=== PATIENT | female | born 1960 | race Caucasian/White ===

== ENCOUNTER 2018-09-14 06:49 | Emergency (ER) | payer BC, SELFPAY ==
[2018-09-14 07:02] VITALS: BP 136/64; PULSE 64; RESP 18; TEMP 36.6; O2SAT 96; BMI 31.4
--- NOTE | 2018-09-14 07:17 | ED.ARRPALP ---
HPI - Arrhythmia/Palpitations General Chief Complaint: Arrhythmia/Palpitations Stated Complaint: flu/afib Time Seen by Provider: 09/14/18 06:58 Source: patient Mode of arrival: ambulatory Limitations: no limitations History of Present Illness HPI narrative: Patient is a 58-year-old presenting with heart palpitations. She has a history of atrial fibrillation and has a pacemaker placed. She said that she has been feeling ill for about the last week with fever body aches and chills. She thinks that she has had influenza. Yesterday she felt that she was in AFib from 10:00 a.m. to 7:00 p.m.. She felt herself convert she then says it went back into this morning at 4:00 a.m. it was not getting any better so she she came to the ER for further evaluation. She now is back to her paced rhythm on the monitor and EKG. She was given albuterol for her cough and chest congestion. She was also given Robitussin. She feels like maybe both of those are causing her AFib. MD complaint: rapid heart beat Arrhythmia history: atrial fibrillation Related Data Home Medications Medication Instructions Recorded Confirmed aspirin 81 mg PO DAILY 09/14/18 09/14/18 lorazepam 0.5 mg PO DAILY PRN 09/14/18 09/14/18 metoprolol tartrate 100 mg PO BID 09/14/18 09/14/18 Allergies Allergy/AdvReac Type Severity Reaction Status Date / Time Penicillins [PENICILLINS] Allergy Unknown Verified 09/14/18 07:15 Review of Systems Review of Systems ROS Unobtainable: All systems reviewed & are unremarkable except as noted in HPI and below Constitutional Reports body ache(s), Reports chills and Reports fever(s) Cardiovascular Reports chest pain and Reports irregular heart rhythm Respiratory Reports chest congestion and Reports cough Gastrointestinal Gastrointestinal: Denies abdominal pain, Denies change in bowel habits, Denies diarrhea, Denies nausea and Denies vomiting Genitourinary Denies hematuria, Denies flank pain, Denies urinary incontinence and Denies urinary urgency Musculoskeletal Denies back pain, Denies muscle weakness, Denies numbness and Denies tingling Integumentary/Breasts Denies pruritus, Denies erythema, Denies rash and Denies wounds Neurologic Denies numbness and Denies tingling [facility] Medical History Atrial fibrillation (Acute) Cleft palate (Acute) Surgical History Status post biventricular pacemaker (Acute) Social History (Updated 09/14/18 @ 07:30 by Aylin Foreman DO) Smoking Status: Former smoker alcohol intake: never substance use type: does not use Social History Smoking Status: Former smoker alcohol intake: never substance use type: does not use Exam Initial Vital Signs Initial Vital Signs: Vital Signs Temperature 97.9 F 09/14/18 07:02 Pulse Rate 64 09/14/18 07:02 Respiratory Rate 18 09/14/18 07:02 Blood Pressure 136/64 09/14/18 07:02 Pulse Oximetry 96 09/14/18 07:02 GENERAL: Well-appearing, well-nourished and in no acute distress. HEENT: Head atraumatic,EOMI, pupils reactive, face symmetric, moist mucous membranes CARDIOVASCULAR: Regular rate and rhythm without murmurs, rubs or gallops. RESPIRATORY: Breath sounds equal bilaterally, no wheezes rales or rhonchi. ABDOMEN: Soft, nontender. Normoactive bowel sounds all 4 quadrants. No guarding or rebound. EXTREMITIES: Normal range of motion, no clubbing or edema. Neurovascularly intact NEUROLOGICAL: Alert and oriented x4.Normal gait and speech. SKIN: Warm, dry, no laceration, no petechiae, no rashes or lesions. Course Orders Ordered: ED Orders 09/14/18 07:02 EKG-12 Lead Stat 09/14/18 07:31 XR chest 1V Stat 09/14/18 07:55 Complete Blood Count AUTO DIFF Stat Comprehensive Metabolic Panel Stat Influenza A and B by PCR Rapid Stat Lipase Stat Troponin & CK Cardiac Panel Stat Discontinued Medications Sodium Chloride (Normal Saline 0.9%) 1,000 mls @ 1,000 mls/hr IV CONT DEXTER Last Infusion: 09/14/18 09:04 Dose: 0 mls/hr Admin: 09/14/18 08:00 Dose: 1,000 mls/hr Vital Signs - 8 hr 09/14/18 07:02 09/14/18 07:30 09/14/18 08:00 Temperature 97.9 F Pulse Rate 64 62 62 Respiratory Rate 18 17 17 Blood Pressure 136/64 Blood Pressure [Right Arm] 128/63 109/56 L Pulse Oximetry 96 98 95 MDM - Arrhythmia/Palpitations Lab Data Attestation: I reviewed the patient's lab results. Result diagrams: 09/14/18 07:55 09/14/18 07:55 Lab Results 09/14/18 09/14/18 09/14/18 Range/Units 07:55 07:55 07:55 WBC 4.2 L (4.5-11.0) X10^3/uL RBC 4.78 (4.0-5.2) X10^6/uL Hgb 14.5 (12.0-16.0) g/dL Hct 42.4 (36-46) % MCV 88.8 (80-100) fL MCH 30.4 (26-34) PG MCHC 34.3 (30-36) % RDW 13.4 (11.6-14.8) % Plt Count 189 (150-400) X10^3/uL Neut % (Auto) 61.1 (50-75) % Lymph % (Auto) 28.2 (25-40) % [place] % (Auto) 9.8 (3-14) % Eos % (Auto) 0.2 L (2-4) % Baso % (Auto) 0.7 (0-2) % Neut # (Auto) 2600 (5103-7722) /uL Lymph # (Auto) 1200 (6652-1281) /uL [place] # (Auto) 400 (0-900) /uL Eos # (Auto) 0 (0-450) /uL Baso # (Auto) 0 (0-100) /uL Sodium 138 (137-145) mmol/L Potassium 4.5 (3.4-5.1) mmol/L Chloride 103 (98-107) mmol/L Carbon Dioxide 23 (22-32) mmol/L BUN 19 H (7-17) mg/dL Creatinine 0.70 (0.52-1.04) mg/dL Estimated GFR > 60.0 (>60) mL/min BUN/Creatinine Ratio 27.1 H (6-22) Glucose 117 H (70-100) mg/dL Calcium 8.5 (8.4-10.2) mg/dL Total Bilirubin 0.7 (0.2-1.3) mg/dL AST 49 H (14-36) IU/L ALT 31 (9-52) IU/L Alkaline Phosphatase 66 (38-126) U/L Total Creatine Kinase 563 H (30-135) U/L CK-MB (CK-2) 7.13 H (<2.37) ng/mL CK-MB (CK-2) Rel Index 1.3 L (1.5-5.0) % Troponin I < 0.012 (0.01-0.034) ng/mL Total Protein 8.0 (6.3-8.2) g/dL Albumin 4.4 (3.5-5.0) g/dL Globulin 3.6 (1.7-4.1) g/dL Albumin/Globulin Ratio 1.2 (1.0-2.8) Lipase 94 (23-300) U/L Influenza A & B (PCR) Positive, type a A (Negative) Imaging Data Chest x-ray: Radiologist's impression: PROCEDURE: XR CHEST 1V INDICATIONS: cough chest pain TECHNIQUE: One view of the chest was acquired. COMPARISON: [facility], CHEST 1 VIEW, 10/09/2012, 6:23. FINDINGS: Surgical changes and devices: Left chest wall cardiac device leads are seen in the region of right atrium and right ventricle. Lungs and pleura: Mild pulmonary vascular congestion is seen. No focal infiltrate. No pleural effusions or pneumothorax. Mediastinum: Mediastinal contours appear normal. Heart size is normal. Bones and chest wall: No suspicious bony lesions. Overlying soft tissues appear unremarkable. IMPRESSION: Mild congestion. No focal infiltrate. Dictated by: Blaine Hinds M.D. on 09/14/2018 at 8:20 ECG Data Attestation: I personally reviewed and interpreted this ECG as follows: Prior ECG tracings: available for review Interpretation: Sinus rhythm rate 61 T-wave inversions noted in V2 V3 and V4 similar to previous id also noted in lead 3. Has no ST elevations. [facility] Narrative Medical decision making narrative: The patient does not have pneumonia she does have influenza. This is likely causing her bouts of atrial fibrillation. Overall feeling better. Patient is not in atrial fibrillation she is a paced rhythm Discharge Plan Departure Patient Disposition: Home Clinical Impression: Influenza Discharge Date/Time: 09/14/18 09:26 Interventions: ED Discharge Assessment Last Done: 09/14/18 09:26 Instructions: DI for Influenza -- Adult Activity Restrictions/Additional Instructions: *You have been diagnosed with influenza *What to do: Increase fluid intake. Bouts of AFib are likely due to the influenza. *Continue to take medications as directed Tylenol 650 mg every 4-6 hours if needed fever *Follow up with your primary care provider in 2-3 days *Return to ER if you should have inability to tolerate fluids, increased heart palpitations, difficulty breathing or any new, worsening or concerning symptoms Prescriptions: No Action metoprolol tartrate 100 mg tablet 100 mg PO BID RF: 0 lorazepam 0.5 mg Tablet 0.5 mg PO DAILY PRN (Reason: Anxiety) RF: 0 aspirin 81 mg Tablet,Chewable 81 mg PO DAILY RF: 0
--- NOTE | 2018-09-14 07:25 | ED_ITS ---
HPI - Arrhythmia/Palpitations General Chief Complaint: Arrhythmia/Palpitations Stated Complaint: flu/afib Time Seen by Provider: 09/14/18 06:58 Source: patient Mode of arrival: ambulatory Limitations: no limitations History of Present Illness HPI narrative: Patient is a 58-year-old presenting with heart palpitations. She has a history of atrial fibrillation and has a pacemaker placed. She said that she has been feeling ill for about the last week with fever body aches and chills. She thinks that she has had influenza. Yesterday she felt that she was in AFib from 10:00 a.m. to 7:00 p.m.. She felt herself convert she then says it went back into this morning at 4:00 a.m. it was not getting any better so she she came to the ER for further evaluation. She now is back to her paced rhythm on the monitor and EKG. She was given albuterol for her cough and chest congestion. She was also given Robitussin. She feels like maybe both of those are causing her AFib. MD complaint: rapid heart beat Arrhythmia history: atrial fibrillation Related Data Home Medications Medication Instructions Recorded Confirmed aspirin 81 mg PO DAILY 09/14/18 09/14/18 lorazepam 0.5 mg PO DAILY PRN 09/14/18 09/14/18 metoprolol tartrate 100 mg PO BID 09/14/18 09/14/18 Allergies Allergy/AdvReac Type Severity Reaction Status Date / Time Penicillins [PENICILLINS] Allergy Unknown Verified 09/14/18 07:15 Review of Systems Review of Systems ROS Unobtainable: All systems reviewed & are unremarkable except as noted in HPI and below Constitutional Reports body ache(s), Reports chills and Reports fever(s) Cardiovascular Reports chest pain and Reports irregular heart rhythm Respiratory Reports chest congestion and Reports cough Gastrointestinal Gastrointestinal: Denies abdominal pain, Denies change in bowel habits, Denies diarrhea, Denies nausea and Denies vomiting Genitourinary Denies hematuria, Denies flank pain, Denies urinary incontinence and Denies urinary urgency Musculoskeletal Denies back pain, Denies muscle weakness, Denies numbness and Denies tingling Integumentary/Breasts Denies pruritus, Denies erythema, Denies rash and Denies wounds Neurologic Denies numbness and Denies tingling [facility] Medical History Atrial fibrillation (Acute) Cleft palate (Acute) Surgical History Status post biventricular pacemaker (Acute) Social History (Updated 09/14/18 @ 07:30 by Aylin Foreman DO) Smoking Status: Former smoker alcohol intake: never substance use type: does not use Social History Smoking Status: Former smoker alcohol intake: never substance use type: does not use Exam Initial Vital Signs Initial Vital Signs: Vital Signs Temperature 97.9 F 09/14/18 07:02 Pulse Rate 64 09/14/18 07:02 Respiratory Rate 18 09/14/18 07:02 Blood Pressure 136/64 09/14/18 07:02 Pulse Oximetry 96 09/14/18 07:02 GENERAL: Well-appearing, well-nourished and in no acute distress. HEENT: Head atraumatic,EOMI, pupils reactive, face symmetric, moist mucous mem branes CARDIOVASCULAR: Regular rate and rhythm without murmurs, rubs or gallops. RESPIRATORY: Breath sounds equal bilaterally, no wheezes rales or rhonchi. ABDOMEN: Soft, nontender. Normoactive bowel sounds all 4 quadrants. No guarding or rebound. EXTREMITIES: Normal range of motion, no clubbing or edema. Neurovascularly intact NEUROLOGICAL: Alert and oriented x4.Normal gait and speech. SKIN: Warm, dry, no laceration, no petechiae, no rashes or lesions. Course Orders Ordered: ED Orders 09/14/18 07:02 EKG-12 Lead Stat 09/14/18 07:31 XR chest 1V Stat 09/14/18 07:55 Complete Blood Count AUTO DIFF Stat Comprehensive Metabolic Panel Stat Influenza A and B by PCR Rapid Stat Lipase Stat Troponin & CK Cardiac Panel Stat Discontinued Medications Sodium Chloride (Normal Saline 0.9%) 1,000 mls @ 1,000 mls/hr IV CONT DEXTER Last Infusion: 09/14/18 09:04 Dose: 0 mls/hr Admin: 09/14/18 08:00 Dose: 1,000 mls/hr Vital Signs - 8 hr 09/14/18 07:02 09/14/18 07:30 09/14/18 08:00 Temperature 97.9 F Pulse Rate 64 62 62 Respiratory Rate 18 17 17 Blood Pressure 136/64 Blood Pressure [Right Arm] 128/63 109/56 L Pulse Oximetry 96 98 95 MDM - Arrhythmia/Palpitations Lab Data Attestation: I reviewed the patient's lab results. Result diagrams: 09/14/18 07:55 09/14/18 07:55 Lab Results 09/14/18 09/14/18 09/14/18 Range/Units 07:55 07:55 07:55 WBC 4.2 L (4.5-11.0) X10^3/uL RBC 4.78 (4.0-5.2) X10^6/uL Hgb 14.5 (12.0-16.0) g/dL Hct 42.4 (36-46) % MCV 88.8 (80-100) fL MCH 30.4 (26-34) PG MCHC 34.3 (30-36) % RDW 13.4 (11.6-14.8) % Plt Count 189 (150-400) X10^3/uL Neut % (Auto) 61.1 (50-75) % Lymph % (Auto) 28.2 (25-40) % [place] % (Auto) 9.8 (3-14) % Eos % (Auto) 0.2 L (2-4) % Baso % (Auto) 0.7 (0-2) % Neut # (Auto) 2600 (8765-5605) /uL Lymph # (Auto) 1200 (2680-4681) /uL [place] # (Auto) 400 (0-900) /uL Eos # (Auto) 0 (0-450) /uL Baso # (Auto) 0 (0-100) /uL Sodium 138 (137-145) mmol/L Potassium 4.5 (3.4-5.1) mmol/L Chloride 103 (98-107) mmol/L Carbon Dioxide 23 (22-32) mmol/L BUN 19 H (7-17) mg/dL Creatinine 0.70 (0.52-1.04) mg/dL Estimated GFR > 60.0 (>60) mL/min BUN/Creatinine Ratio 27.1 H (6-22) Glucose 117 H (70-100) mg/dL Calcium 8.5 (8.4-10.2) mg/dL Total Bilirubin 0.7 (0.2-1.3) mg/dL AST 49 H (14-36) IU/L ALT 31 (9-52) IU/L Alkaline Phosphatase 66 (38-126) U/L Total Creatine Kinase 563 H (30-135) U/L CK-MB (CK-2) 7.13 H (<2.37) ng/mL CK-MB (CK-2) Rel Index 1.3 L (1.5-5.0) % Troponin I < 0.012 (0.01-0.034) ng/mL Total Protein 8.0 (6.3-8.2) g/dL Albumin 4.4 (3.5-5.0) g/dL Globulin 3.6 (1.7-4.1) g/dL Albumin/Globulin Ratio 1.2 (1.0-2.8) Lipase 94 (23-300) U/L Influenza A & B (PCR) Positive, type a A (Negative) Imaging Data Chest x-ray: Radiologist's impression: PROCEDURE: XR CHEST 1V INDICATIONS: cough chest pain TECHNIQUE: One view of the chest was acquired. COMPARISON: [facility], , CHEST 1 VIEW, 10/09/2012, 6:23. FINDINGS: Surgical changes and devices: Left chest wall cardiac device leads are seen in the region of right atrium and right ventricle. Lungs and pleura: Mild pulmonary vascular congestion is seen. No focal infi ltrate. No pleural effusions or pneumothorax. Mediastinum: Mediastinal contours appear normal. Heart size is normal. Bones and chest wall: No suspicious bony lesions. Overlying soft tissues appear unremarkable. IMPRESSION: Mild congestion. No focal infiltrate. Dictated by: Blaine Hinds M.D. on 09/14/2018 at 8:20 ECG Data Attestation: I personally reviewed and interpreted this ECG as follows: Prior ECG tracings: available for review Interpretation: Sinus rhythm rate 61 T-wave inversions noted in V2 V3 and V4 similar to previous id also noted in lead 3. Has no ST elevations. MDM Narrative Medical decision making narrative: The patient does not have pneumonia she does have influenza. This is likely causing her bouts of atrial fibrillation. Overall feeling better. Patient is not in atrial fibrillation she is a paced rhythm Discharge Plan Departure Patient Disposition: Home Clinical Impression: Influenza Discharge Date/Time: 09/14/18 09:26 Interventions: ED Discharge Assessment Last Done: 09/14/18 09:26 Instructions: DI for Influenza -- Adult Activity Restrictions/Additional Instructions: *You have been diagnosed with influenza *What to do: Increase fluid intake. Bouts of AFib are likely due to the influenza. *Continue to take medications as directed Tylenol 650 mg every 4-6 hours if needed fever *Follow up with your primary care provider in 2-3 days *Return to ER if you should have inability to tolerate fluids, increased heart palpitations, difficulty breathing or any new, worsening or concerning symptoms Prescriptions: No Action metoprolol tartrate 100 mg tablet 100 mg PO BID RF: 0 lorazepam 0.5 mg Tablet 0.5 mg PO DAILY PRN (Reason: Anxiety) RF: 0 aspirin 81 mg Tablet,Chewable 81 mg PO DAILY RF: 0
[2018-09-14 07:30] VITALS: BP 128/63; PULSE 62; RESP 17; O2SAT 98
--- NOTE | 2018-09-14 07:31 | DI.RAD.S_ITS ---
PROCEDURE: XR CHEST 1V INDICATIONS: cough chest pain TECHNIQUE: One view of the chest was acquired. COMPARISON: , , CHEST 1 VIEW, 10/09/2012, 6:23. FINDINGS: Surgical changes and devices: Left chest wall cardiac device leads are seen in the region of right atrium and right ventricle. Lungs and pleura: Mild pulmonary vascular congestion is seen. No focal infiltrate. No pleural effusions or pneumothorax. Mediastinum: Mediastinal contours appear normal. Heart size is normal. Bones and chest wall: No suspicious bony lesions. Overlying soft tissues appear unremarkable. IMPRESSION: Mild congestion. No focal infiltrate. Dictated by: Blaine Hinds M.D. on 09/14/2018 at 8:20 Approved by: Blaine Hinds M.D. on 09/14/2018 at 8:22
[2018-09-14 08:00] VITALS: BP 109/56; PULSE 62; RESP 17; O2SAT 95
[2018-09-14] MEDS: SODIUM CHLORIDE 0.9% 1,000 ML 1000 ML IV (08:00)
[2018-09-14 08:05] LABS: Add Manual Diff / Slide Review NO; Basophils Absolute Auto 0 /uL (0-100); Basophils Percent Auto 0.7 % (0-2); Eosinophils Absolute Auto 0 /uL (0-450); Eosinophils Percent Auto 0.2 % (2-4); Hematocrit 42.4 % (36-46); Hemoglobin 14.5 g/dL (12.0-16.0); Lymphocytes Absolute Auto 1200 /uL (1100-4500); Lymphocytes Percent Auto 28.2 % (25-40); Mean Corpuscular HGB Conc 34.3 % (30-36); Mean Corpuscular Hemoglobin 30.4 PG (26-34); Mean Corpuscular Volume 88.8 fL (80-100); Monocytes Absolute Auto 400 /uL (0-900); Monocytes Percent Auto 9.8 % (3-14); Neutrophils Absolute Auto 2600 /uL (1500-7000); Neutrophils Percent Auto 61.1 % (50-75); Platelet Count 189 X10^3/uL (150-400); Red Blood Cell Count 4.78 X10^6/uL (4.0-5.2); Red Cell Distribution Width 13.4 % (11.6-14.8); White Blood Cell Count 4.2 X10^3/uL (4.5-11.0)
[2018-09-14 08:18] LABS: Alanine Aminotransferase 31 IU/L (9-52); Albumin 4.4 g/dL (3.5-5.0); Albumin Globulin Ratio 1.2 (1.0-2.8); Alkaline Phosphatase 66 U/L (38-126); Aspartate Aminotransferase 49 IU/L (14-36); BUN Creatinine Ratio 27.1 (6-22); Bilirubin Total 0.7 mg/dL (0.2-1.3); Blood Urea Nitrogen 19 mg/dL (7-17); Calcium 8.5 mg/dL (8.4-10.2); Carbon Dioxide 23 mmol/L (22-32); Chloride 103 mmol/L (98-107); Creatine Kinase 563 U/L (30-135); Estimated Glomerular Filt Rate > 60.0 mL/min (>60); Globulin 3.6 g/dL (1.7-4.1); Glucose 117 mg/dL (70-100); Lipase 94 U/L (23-300); Potassium 4.5 mmol/L (3.4-5.1); Sodium 138 mmol/L (137-145)
[2018-09-14 08:21] LABS: HEMOLYSIS 124 (0-50)
[2018-09-14 08:30] LABS: Troponin I < 0.012 ng/mL (0.01-0.034)
[2018-09-14 08:34] LABS: CKMB % Relative Index 1.3 % (1.5-5.0); Creatine Kinase MB 7.13 ng/mL (<2.37)
== END 2018-09-14 09:26 | disposition home or self-care (01) ==
PROVIDERS: Emergency Provider Emergency Medicine
DX: J11.1 Influenza due to unidentified influenza virus with other respiratory manifestations (principal)
CPT/HCPCS: 36591; 71045; 80053; 82550; 82553; 83690; 84484; 85025; 87400; 93005; 96360; 99283; 99285

== ENCOUNTER → 2019-07-19 15:56 | Outpatient (CLI) | payer BC, SELFPAY ==
--- NOTE | 2019-07-19 | DI.MG.S_ITS ---
BILATERAL DIGITAL SCREENING MAMMOGRAM 3D/2D WITH CAD: 07/19/2019 CLINICAL: Routine screening. Comparison is made to exams dated: 07/28/2012 mammogram, 09/18/2014 mammogram, and 06/22/2016 mammogram - [facility]. There are scattered fibroglandular elements in both breasts. Current study was also evaluated with a Computer Aided Detection (CAD) system. No significant masses, calcifications, or other findings are seen in either breast. There has been no significant interval change. IMPRESSION: NEGATIVE There is no mammographic evidence of malignancy. A 1 year screening mammogram is recommended. This exam was interpreted at Station ID: [id number]. NOTE: For mammograms, a report in lay terms will be sent to the patient. Approximately 15% of breast malignancies will not be visualized mammographically. In the management of a palpable breast mass, a negative mammogram must not discourage biopsy of a clinically suspicious lesion. Electronically Signed By: Stacy jean/jeovany:07/19/2019 16:35:54 letter sent: Normal Exam ACR BI-RADS Category 1: Negative [id number]
== END ==
PROVIDERS: PCP Physician Assistant Medical; Visit Provider Physician Assistant Medical
DX: Z12.31 Encounter for screening mammogram for malignant neoplasm of breast (principal)
CPT/HCPCS: 77063; 77067

== ENCOUNTER 2020-05-19 17:36 | Emergency (ER) | payer BC, SELFPAY ==
[2020-05-19] VITALS (9 sets, daily range): BP systolic 123–174; BP diastolic 70–91; PULSE 59–69; RESP 14–16; TEMP 36.5; O2SAT 97–100
--- NOTE | 2020-05-19 19:31 | ED_ITS ---
HPI - Dizziness General Chief Complaint: Dizziness Stated Complaint: patients states vertigo Time Seen by Provider: 05/19/20 19:00 Source: patient and family Mode of arrival: Ambulatory Limitations: no limitations History of Present Illness HPI Narrative: 60-year-old female nonsmoker with a history of AFib with pace maker, aspirin only, presents with her significant other and a chief complaint of ongoing dizziness and vertigo for about 2 weeks. She states that it feels as if she is spinning, and is present more often than not. Initially it was very predictable and would occur with change in position or movement of her head and would improve after a minute or so. She was seen out outside facilities and diagnosed with BPPV. She had improvement with meclizine and [facility] Maneuver. Over the past few days or so she states it seems to be worsened by change in position or moving her head and at other times it seems to persist despite her efforts. She has had no fever or chills. She's had no head pain or other neurologic symptoms. She has had no chest pain or shortness of breath. She has had no alterations in her chronic medications. She states that she did have a head injury and the day or 2 prior to the dizziness starting. She has been seen and evaluated at an outside facility and had diagnosis Related Data Home Medications Medication Instructions Recorded Confirmed aspirin 81 mg PO DAILY 09/14/18 09/14/18 lorazepam 0.5 mg PO DAILY PRN 09/14/18 09/14/18 metoprolol tartrate 100 mg PO BID 09/14/18 09/14/18 Previous Rx's Medication Instructions Recorded meclizine 25 mg tablet 25 mg PO BID-QID PRN #60 tab 05/10/20 ondansetron 4 mg disintegrating 4 mg PO BID-TID PRN #20 tab 05/10/20 tablet Allergies Allergy/AdvReac Type Severity Reaction Status Date / Time Penicillins [PENICILLINS] Allergy Unknown Verified 09/14/18 07:15 Review of Systems Constitutional Constitutional: Denies chills, Denies fatigue, Denies fever(s), Denies frequent falls, Denies lethargy and Denies weakness Eyes Eyes: Denies change in vision, Denies eye discharge, Denies irritation and Denies loss of vision ENT Ears, Nose, Mouth, and Throat: Denies change in voice, Reports vertigo, Reports dizziness, Denies neck pain, Denies sore throat and Denies throat swelling Cardiovascular Cardiovascular: Denies chest pain, Denies irregular heart rhythm, Denies lightheadedness, Denies palpitations, Denies dyspnea, Denies dyspnea on exertion and Denies orthopnea Respiratory Respiratory: Denies cough, Denies dyspnea, Denies dyspnea on exertion and Denies wheezing Gastrointestinal Gastrointestinal: Denies abdominal pain, Denies change in bowel habits, Denies diarrhea, Denies nausea and Reports vomiting Musculoskeletal Musculoskeletal: Denies neck pain and Denies numbness Integumentary/Breasts Skin/Breast: Denies pruritus, Denies erythema, Denies rash and Denies wounds Neurologic Neurologic: Denies behavioral changes, Denies confusion, Reports vertigo, Reports dizziness, Denies frequent falls, Denies loss of vision, Denies numbness and Denies weakness Psychiatric Psychiatric: Denies anxiety, Denies behavioral changes, Denies confusion, Denies depression, Denies homicidal ideation and Denies suicidal ideation Endocrine Endocrine: Denies fatigue, Denies flushing and Denies palpitations Hematologic/Lymphatic Hematologic/Lymphatic: Denies easy bruising Allergic/Immunologic Allergic/Immunologic: Denies urticaria, Denies throat swelling and Denies wheezing Patient History Medical History Atrial fibrillation Cleft palate Dizziness Surgical History Status post biventricular pacemaker Social History Smoking Status: Former smoker alcohol intake: never substance use type: does not use Smoking Status: Former smoker Substance Use Type: does not use Exam Narrative Exam Narrative: GENERAL: [60] year old patient appears stated age. Well- nourished, well-developed patient, in mild distress. HEAD: Atraumatic. Normocephalic. EYES: Pupils equal round and reactive. Extraocular motions intact. Lateral nystagmus with fast twitch to the left. No scleral icterus. No injection or drainage. ENT: Nose without bleeding, purulent drainage. Throat without erythema, tonsillar hypertrophy or exudate. Airway patent. NECK: Trachea midline. Non tender CARDIOVASCULAR: Regular rate and rhythm without murmurs, gallops, or rubs. RESPIRATORY: Clear to auscultation. Breath sounds equal bilaterally. No wheezes, rales, or rhonchi. GASTROINTESTINAL: Abdomen soft, non-tender, nondistended. EXTREMITIES: No edema or joint tenderness. BACK: Nontender without deformity or crepitance. No flank tenderness. NEURO: AOx3. SKIN: No rash or erythema of visible areas NIH Stroke Scale 1a. LOC: Patient is alert and keenly responsive (0) 1b. LOC Questions: Patient answers both LOC questions accurately (0) 1c. LOC Commands: Patient performs both tasks correctly (0) 2. Best Gaze: Normal (0) 3. Visual: No visual loss (0) 4. Facial palsy: Normal symmetrical movements (0) 5. Motor arm: No drift (0) 6. Motor leg: No drift (0) 7. Limb ataxia: Absent (0) 8. Sensory: Normal (0) 9. Best language: No aphasia; normal (0) 10. Dysarthria: Normal (0) 11. Extinction and inattention: No abnormality (0) NIHSS: 0 Initial Vital Signs Initial Vital Signs: Vital Signs Temperature 97.7 F 05/19/20 17:42 Pulse Rate 69 05/19/20 17:42 Respiratory Rate 16 05/19/20 17:42 Blood Pressure 174/81 H 05/19/20 17:42 Pulse Oximetry 100 05/19/20 17:42 Course Orders Ordered: ED Orders 05/19/20 19:44 CT head/brain wo con Stat 05/19/20 19:45 EKG-12 Lead Stat 05/19/20 19:55 Complete Blood Count AUTO DIFF Stat Comprehensive Metabolic Panel Stat Troponin & CK Cardiac Panel Stat 05/19/20 20:44 CT angio head and neck Stat Sodium Chloride (Normal Saline 0.9%) 500 mls @ 1,000 mls/hr IV BOLUS ONE Stop: 05/19/20 23:28 Last Admin: 05/19/20 23:02 Dose: 1,000 mls/hr Documented by: Discontinued Medications Meclizine HCl (Meclizine Hcl 12.5 Mg Tablet) 50 mg PO NOW ONE Stop: 05/19/20 22:12 Last Admin: 05/19/20 22:28 Dose: 50 mg Documented by: Consultations Consultation #1: call to Dr. Lindo (ENT) and after discussion of history and physical he agrees that stroke is unlikely and that story sounds consistent with a complex BPPV, perhaps an impacted otolith and recommends ongoing symptomatic treatment and encouragement to follow up with [facility], suggesting that Dr. Lockett is in the office tomorrow. Vital Signs Vital signs: Vital Signs - 8 hr 05/19/20 17:42 05/19/20 20:04 05/19/20 20:12 Temperature 97.7 F Pulse Rate 69 60 62 Respiratory Rate 16 14 Blood Pressure 174/81 H 123/91 H Pulse Oximetry 100 98 98 05/19/20 20:30 05/19/20 21:00 05/19/20 21:30 Temperature Pulse Rate 60 59 L 61 Respiratory Rate Blood Pressure Pulse Oximetry 97 99 98 05/19/20 22:00 Temperature Pulse Rate 60 Respiratory Rate Blood Pressure Pulse Oximetry 99 MDM - Dizziness Lab Data Result diagrams: 05/19/20 19:55 05/19/20 19:55 Labs: Lab Results 05/19/20 05/19/20 Range/Units 19:55 19:55 WBC 12.0 H (4.5-11.0) X10^3/uL RBC 4.89 (4.0-5.2) X10^6/uL Hgb 14.7 (12.0-16.0) g/dL Hct 43.4 (36-46) % MCV 88.8 (80-100) fL MCH 30.0 (26-34) PG MCHC 33.7 (30-36) % RDW 13.6 (11.6-14.8) % Plt Count 250 (150-400) X10^3/uL Neut % (Auto) 82.1 H (50-75) % Lymph % (Auto) 14.6 L (25-40) % [place] % (Auto) 2.7 L (3-14) % Eos % (Auto) 0.1 L (2-4) % Baso % (Auto) 0.5 (0-2) % Neut # (Auto) 9800 H (5434-9088) /uL Lymph # (Auto) 1800 (8091-0136) /uL [place] # (Auto) 300 (0-900) /uL Eos # (Auto) 0 (0-450) /uL Baso # (Auto) 100 (0-100) /uL Sodium 139 (137-145) mmol/L Potassium 4.8 (3.4-5.1) mmol/L Chloride 104 (98-107) mmol/L Carbon Dioxide 28 (22-32) mmol/L BUN 21 H (7-17) mg/dL Creatinine 0.56 (0.52-1.04) mg/dL Estimated GFR > 60.0 (>60) mL/min BUN/Creatinine Ratio 37.5 H (6-22) Glucose 122 H (70-100) mg/dL Calcium 9.9 (8.4-10.2) mg/dL Total Bilirubin 0.9 (0.2-1.3) mg/dL AST 47 H (14-36) IU/L ALT 36 H (<35) IU/L Alkaline Phosphatase 95 (38-126) U/L Total Creatine Kinase 592 H (30-135) U/L CK-MB (CK-2) 12.20 H (<2.37) ng/mL CK-MB (CK-2) Rel Index 2.1 (1.5-5.0) % Troponin I < 0.012 (0.01-0.034) ng/mL Total Protein 9.4 H (6.3-8.2) g/dL Albumin 4.8 (3.5-5.0) g/dL Globulin 4.6 H (1.7-4.1) g/dL Albumin/Globulin Ratio 1.0 (1.0-2.8) Imaging Data CT scan - head: Radiologist's Impression: [address] [id number] Scan ReportSigned Patient: Taisha Keller [facility]#: [id number]: [id number] 2Acct:[id number]/Sex: 60 / FDate of Service: 05/19/20Loc: EDAccession Number: [id number] Procedure: CT head/brain wo con Ordering Provider: Severo De Guzman D.O. PROCEDURE: CT HEAD/BRAIN WO CON INDICATIONS: dizziness, vision trouble, balance TECHNIQUE: Noncontrast 4.5 mm thick angled axial sections acquired from the foramen magnum to the vertex, with coronal and sagittal reformats. For radiation dose reduction, the following was used: automated exposure control, adjustment of mA and/or kV according to patient size. COMPARISON: None. FINDINGS: Image quality: Excellent. CSF spaces: Basal cisterns are patent. No extra-axial fluid collections. The ventricles are symmetric in size and shape. Brain: No intracranial bleeds or masses. There is cerebral volume loss for age, with resultant ventricular and sulcal prominence. There are periventricular and deep white matter chronic small vessel ischemic changes. There is intracranial internal carotid artery atherosclerosis. Skull and face: Calvarium and visualized facial bones appear intact, without suspicious lesions. Sinuses: Visualized sinuses and mastoids are clear. IMPRESSION: No acute intracranial process. Diffuse small white matter changes, probably represent chronic microvascular ischemic disease, versus statistically less likely demyelination or other infectious, inflammatory, neurodegenerative etiology, technically nonspecific. Dictated by: Nate Will M.D. on 05/19/2020 at 20:22 Approved by: Nate Will M.D. on 05/19/2020 at 20:[address] [id number] Scan ReportSigned Patient: Taisha Keller MMR#: [id number]: 1960cct:[id number]/Sex: 60 / FDate of Service: 05/19/20Loc: EDAccessio n Number: [id number] Procedure: CT angio head and neck Ordering Provider: Severo De Guzman D.O. PROCEDURE: CT ANGIO HEAD AND NECK INDICATIONS: dizzy, rotary nystagmus, blurred vision TECHNIQUE: Pre-contrast 4.5 mm thick sections acquired from the foramen magnum to the ve rtex. After the administration of intravenous contrast, 1 mm thick sections acquired from the aortic arch through the [place] of [place]. Post-contrast 4.5 mm thick sections then re- acquired from the foramen magnum to the vertex. 3-dimensional bwxjetu-kzkawheib-xyynllukvw (MIP) and/or volume rendering reformats were acquired of the central intracranial vasculature and neck separately. COMPARISON: None. FINDINGS: Image quality: Excellent. BRAIN: CSF spaces: Ventricles are normal in size and shape. Basal cisterns are patent. No extra-axial fluid collections. Brain: No midline shift. No intracranial bleeds or masses. [place]-white matter interface appears intact. Skull and face: Calvarium and facial bones appear intact, without suspicious lesions. Orbits appear normal. Sinuses: Sinuses and mastoids are clear. HEAD CT ANGIOGRAPHY: Anterior circulation: Intracranial internal carotid arteries are normal in size and flow. The flow within the paired anterior cerebral arteries is normal and symmetric. The flow within the middle cerebral arteries is normal and symmetric. The anterior communicating artery is seen. No aneurysms are seen. Posterior circulation: Visualized portions of the vertebral arteries demonstrate normal caliber, and join to form a normal appearing basilar artery. Flow within the posterior cerebral arteries is normal and symmetric. No aneurysms are seen. NECK CT ANGIOGRAPHY: Carotid system: The great vessels demonstrate a conventional anatomy as they arise from the aortic arch. The origins of the common carotid arteries appear patent. The common carotid arteries demonstrate normal caliber and courses. The bifurcation regions are both widely patent. There is minimal bilateral carotid calcified plaque. The internal carotid arteries demonstrate normal calibers and courses. Posterior circulation: The origins of the vertebral arteries both appear widely patent. The more superior extracranial portions of both vertebral arteries also demonstrate normal courses and calibers. They join to form a normal appearing basilar artery. Soft tissues: Visualized neck soft tissues demonstrate no suspicious abnorm alities. Bones: No suspicious bony lesions. Mild cervical spondylosis. IMPRESSION: No focal intracranial stenosis or occlusion No hemodynamically significant (>50%) ICA stenosis Any quantitative measurements of stenosis were performed using NASCET criteria. Dictated by: Nate Will M.D. on 05/19/2020 at 21:53 Approved by: Nate Will M.D. on 05/19/2020 at 22:02 MDM Narrative Medical decision making narrative: Multiple etiologies for patient's symptoms considered including: [Complicated BPPV versus vertebral artery dissection versus ICH vs. other] Patient's symptoms improved over duration of stay with above-stated therapies. Findings and discharge diagnosis discussed with patient/family followed by verbalization of understanding Return precautions discussed with patient/family whom verbalize understanding. Discharge Plan Departure Patient Disposition: Home Clinical Impression: Benign paroxysmal positional vertigo Qualifiers: Laterality: left Qualified Code(s): H81.12 - Benign paroxysmal vertigo, left ear Instructions: DI for Vertigo Activity Restrictions/Additional Instructions: *You have been diagnosed with [ongoing vertigo, likely a complicated benign paroxysmal positional vertigo. Your evaluation today including CT scans are very reassuring for other, more ominous diagnoses.] *What to do: *Take medications as directed *Follow up with [facility], call in the morning for an appointment. Let them know you were seen in the Emergency Department and that we ask that you be seen in follow up. You can tell them that Dr. De Guzman spoke with Dr. Lindo and they want you to be seen. *Return to ER if you should have any new, worsening or concerning symptoms Prescriptions: No Action meclizine 25 mg tablet 25 mg PO BID-QID PRN (Reason: dizziness) Qty: 60 RF: 0 ondansetron 4 mg tablet,disintegrating 4 mg PO BID-TID PRN (Reason: nausea and vomiting) Qty: 20 RF: 0 metoprolol tartrate 100 mg tablet 100 mg PO BID RF: 0 lorazepam 0.5 mg Tablet 0.5 mg PO DAILY PRN (Reason: Anxiety) RF: 0 aspirin 81 mg Tablet,Chewable 81 mg PO DAILY RF: 0 Referrals: Adarsh Lockett MD [Physician] - Effie Grove PA-C [Primary Care Provider] -
--- NOTE | 2020-05-19 19:44 | DI.CT.S_ITS ---
PROCEDURE: CT HEAD/BRAIN WO CON INDICATIONS: dizziness, vision trouble, balance TECHNIQUE: Noncontrast 4.5 mm thick angled axial sections acquired from the foramen magnum to the vertex, with coronal and sagittal reformats. For radiation dose reduction, the following was used: automated exposure control, adjustment of mA and/or kV according to patient size. COMPARISON: None. FINDINGS: Image quality: Excellent. CSF spaces: Basal cisterns are patent. No extra-axial fluid collections. The ventricles are symmetric in size and shape. Brain: No intracranial bleeds or masses. There is cerebral volume loss for age, with resultant ventricular and sulcal prominence. There are periventricular and deep white matter chronic small vessel ischemic changes. There is intracranial internal carotid artery atherosclerosis. Skull and face: Calvarium and visualized facial bones appear intact, without suspicious lesions. Sinuses: Visualized sinuses and mastoids are clear. IMPRESSION: No acute intracranial process. Diffuse small white matter changes, probably represent chronic microvascular ischemic disease, versus statistically less likely demyelination or other infectious, inflammatory, neurodegenerative etiology, technically nonspecific. Dictated by: Nate Will M.D. on 05/19/2020 at 20:22 Approved by: Nate Will M.D. on 05/19/2020 at 20:24
[2020-05-19 20:03] LABS: Add Manual Diff / Slide Review NO; Basophils Absolute Auto 100 /uL (0-100); Basophils Percent Auto 0.5 % (0-2); Eosinophils Absolute Auto 0 /uL (0-450); Eosinophils Percent Auto 0.1 % (2-4); Hematocrit 43.4 % (36-46); Hemoglobin 14.7 g/dL (12.0-16.0); Lymphocytes Absolute Auto 1800 /uL (1100-4500); Lymphocytes Percent Auto 14.6 % (25-40); Mean Corpuscular HGB Conc 33.7 % (30-36); Mean Corpuscular Volume 88.8 fL (80-100); Monocytes Absolute Auto 300 /uL (0-900); Monocytes Percent Auto 2.7 % (3-14); Neutrophils Absolute Auto 9800 /uL (1500-7000); Neutrophils Percent Auto 82.1 % (50-75); Platelet Count 250 X10^3/uL (150-400); Red Blood Cell Count 4.89 X10^6/uL (4.0-5.2); Red Cell Distribution Width 13.6 % (11.6-14.8)
[2020-05-19 20:17] LABS: Alanine Aminotransferase 36 IU/L (<35); Albumin 4.8 g/dL (3.5-5.0); Alkaline Phosphatase 95 U/L (38-126); Aspartate Aminotransferase 47 IU/L (14-36); BUN Creatinine Ratio 37.5 (6-22); Bilirubin Total 0.9 mg/dL (0.2-1.3); Blood Urea Nitrogen 21 mg/dL (7-17); Calcium 9.9 mg/dL (8.4-10.2); Carbon Dioxide 28 mmol/L (22-32); Chloride 104 mmol/L (98-107); Creatine Kinase 592 U/L (30-135); Estimated Glomerular Filt Rate > 60.0 mL/min (>60); Globulin 4.6 g/dL (1.7-4.1); Glucose 122 mg/dL (70-100); Sodium 139 mmol/L (137-145); Total Protein 9.4 g/dL (6.3-8.2)
[2020-05-19 20:28] LABS: Troponin I < 0.012 ng/mL (0.01-0.034)
[2020-05-19 20:31] LABS: CKMB % Relative Index 2.1 % (1.5-5.0); HEMOLYSIS 113 (0-50); Potassium 4.8 mmol/L (3.4-5.1)
--- NOTE | 2020-05-19 20:44 | DI.CT.S_ITS ---
PROCEDURE: CT ANGIO HEAD AND NECK INDICATIONS: dizzy, rotary nystagmus, blurred vision TECHNIQUE: Pre-contrast 4.5 mm thick sections acquired from the foramen magnum to the vertex. After the administration of intravenous contrast, 1 mm thick sections acquired from the aortic arch through the [place] of [place]. Post-contrast 4.5 mm thick sections then re-acquired from the foramen magnum to the vertex. 3-dimensional swecpbn-zlnwrmhlo-qvbhcjttlv (MIP) and/or volume rendering reformats were acquired of the central intracranial vasculature and neck separately. COMPARISON: None. FINDINGS: Image quality: Excellent. BRAIN: CSF spaces: Ventricles are normal in size and shape. Basal cisterns are patent. No extra-axial fluid collections. Brain: No midline shift. No intracranial bleeds or masses. [place]-white matter interface appears intact. Skull and face: Calvarium and facial bones appear intact, without suspicious lesions. Orbits appear normal. Sinuses: Sinuses and mastoids are clear. HEAD CT ANGIOGRAPHY: Anterior circulation: Intracranial internal carotid arteries are normal in size and flow. The flow within the paired anterior cerebral arteries is normal and symmetric. The flow within the middle cerebral arteries is normal and symmetric. The anterior communicating artery is seen. No aneurysms are seen. Posterior circulation: Visualized portions of the vertebral arteries demonstrate normal caliber, and join to form a normal appearing basilar artery. Flow within the posterior cerebral arteries is normal and symmetric. No aneurysms are seen. NECK CT ANGIOGRAPHY: Carotid system: The great vessels demonstrate a conventional anatomy as they arise from the aortic arch. The origins of the common carotid arteries appear patent. The common carotid arteries demonstrate normal caliber and courses. The bifurcation regions are both widely patent. There is minimal bilateral carotid calcified plaque. The internal carotid arteries demonstrate normal calibers and courses. Posterior circulation: The origins of the vertebral arteries both appear widely patent. The more superior extracranial portions of both vertebral arteries also demonstrate normal courses and calibers. They join to form a normal appearing basilar artery. Soft tissues: Visualized neck soft tissues demonstrate no suspicious abnormalities. Bones: No suspicious bony lesions. Mild cervical spondylosis. IMPRESSION: No focal intracranial stenosis or occlusion No hemodynamically significant (>50%) ICA stenosis Any quantitative measurements of stenosis were performed using NASCET criteria. Dictated by: Nate Will M.D. on 05/19/2020 at 21:53 Approved by: Nate Will M.D. on 05/19/2020 at 22:02
[2020-05-19] MEDS: MECLIZINE HCL 12.5 MG TABLET 50 MG PO (22:28)
[2020-05-19] MEDS: SODIUM CHLORIDE 0.9% 500 ML 1000 ML IV (23:02)
== END 2020-05-19 23:36 | disposition home or self-care (01) ==
PROVIDERS: Emergency Provider Emergency Medicine; PCP Physician Assistant Medical
DX: H81.12 Benign paroxysmal vertigo, left ear (principal); I48.91 Unspecified atrial fibrillation; Z95.0 Presence of cardiac pacemaker; Z79.82 Long term (current) use of aspirin; H53.8 Other visual disturbances; R07.9 Chest pain, unspecified
CPT/HCPCS: 36415; 70450; 70496; 70498; 80053; 82550; 82553; 84484; 85025; 93005; 93010; 96360; 99283; 99284; Q9967

== ENCOUNTER → 2021-07-08 15:45 | Outpatient (CLI) | payer BC, SELFPAY ==
--- NOTE | 2021-07-08 | DI.MG.S_ITS ---
BILATERAL DIGITAL SCREENING MAMMOGRAM 3D/2D WITH CAD: 07/08/2021 CLINICAL: Routine screening. Comparison is made to exams dated: 07/19/2019 mammogram - [facility], 06/22/2016 mammogram, and 09/18/2014 mammogram - [facility]. There are scattered fibroglandular elements in both breasts. Current study was also evaluated with a Computer Aided Detection (CAD) system. No significant masses, calcifications, or other findings are seen in either breast. There has been no significant interval change. IMPRESSION: NEGATIVE There is no mammographic evidence of malignancy. A 1 year screening mammogram is recommended. This exam was interpreted at Station ID: [id number]. NOTE: For mammograms, a report in lay terms will be sent to the patient. Approximately 15% of breast malignancies will not be visualized mammographically. In the management of a palpable breast mass, a negative mammogram must not discourage biopsy of a clinically suspicious lesion. Electronically Signed By: Eddie Olson M.D., jr/jeovany:07/08/2021 16:16:40 letter sent: Normal Exam ACR BI-RADS Category 1: Negative [id number]
== END ==
PROVIDERS: PCP Physician Assistant Medical; Referring Provider Physician Assistant Medical; Visit Provider Physician Assistant Medical
DX: Z12.31 Encounter for screening mammogram for malignant neoplasm of breast (principal)
CPT/HCPCS: 77063; 77067

== ENCOUNTER → 2022-05-01 10:11 | Outpatient (CLI) | payer BC, SELFPAY | PROVIDERS: PCP Physician Assistant Medical; Visit Provider Physician Assistant | DX: N39.0 Urinary tract infection, site not specified (principal) | CPT/HCPCS: 87077; 87086; 87186 ==

== ENCOUNTER → 2022-08-08 14:32 | Outpatient (CLI) | payer BC, SELFPAY ==
[2022-08-08 16:13] LABS: Influenza A - CEPHEID Flu A NEGATIVE (NEGATIVE); Influenza B - CEPHEID Flu B NEGATIVE (NEGATIVE); Respiratory Syncytial Virus Negative (Negative)
[2022-08-08 16:18] LABS: COVID-19 CEPHEID 4-PLEX PCR Negative (Negative)
== END ==
PROVIDERS: PCP Physician Assistant Medical; Visit Provider Nurse Practitioner Family
DX: R05.9 Cough, unspecified (principal); R52 Pain, unspecified; R53.83 Other fatigue; R68.83 Chills (without fever)
CPT/HCPCS: 0241U

== ENCOUNTER → 2022-12-22 12:12 | Outpatient (CLI) | payer BC, SELFPAY | PROVIDERS: PCP Physician Assistant Medical; Visit Provider Nurse Practitioner Family | DX: R39.15 Urgency of urination (principal) | CPT/HCPCS: 87086 ==

== ENCOUNTER → 2023-01-10 07:52 | Outpatient (CLI) | payer BC, SELFPAY ==
--- NOTE | 2023-01-10 07:53 | DI.MG.S_ITS ---
BILATERAL DIGITAL SCREENING MAMMOGRAM 3D/2D WITH CAD: 01/10/2023 CLINICAL: Routine screening. Comparison is made to exams dated: 07/08/2021 mammogram, 07/19/2019 mammogram - [facility], and 06/22/2016 mammogram - [facility]. There are scattered areas of fibroglandular density in both breasts (category b / 25%-50% glandular tissue). Current study was also evaluated with a Computer Aided Detection (CAD) system. No significant masses, calcifications, or other findings are seen in either breast. There has been no significant interval change. IMPRESSION: NEGATIVE There is no mammographic evidence of malignancy. A 1 year screening mammogram is recommended. Based on the Tyrer Cuzick model (a risk assessment model) the patient's lifetime risk is 8.3% and her 10 year risk is 3.3%. According to the ACR, ACS, and NCCN guidelines, an annual breast MRI exam along with mammogram is recommended if the patient's lifetime risk is 20% or greater. This exam was interpreted at Station ID: [id number]. NOTE: For mammograms, a report in lay terms will be sent to the patient. Approximately 15% of breast malignancies will not be visualized mammographically. In the management of a palpable breast mass, a negative mammogram must not discourage biopsy of a clinically suspicious lesion. Electronically Signed By: Josr rivera/jeovany:01/10/2023 12:07:55 letter sent: Normal Exam ACR BI-RADS Category 1: Negative [id number]
== END ==
PROVIDERS: PCP Physician Assistant Medical; Referring Provider Physician Assistant Medical; Visit Provider Physician Assistant Medical
DX: Z12.31 Encounter for screening mammogram for malignant neoplasm of breast (principal)
CPT/HCPCS: 77063; 77067

== ENCOUNTER → 2024-04-17 15:08 | Outpatient (CLI) | payer BC, SELFPAY ==
--- NOTE | 2024-04-17 15:09 | DI.MG.S_ITS ---
BILATERAL DIGITAL SCREENING MAMMOGRAM 3D/2D WITH CAD: 04/17/2024 CLINICAL: Routine screening. Comparison is made to exams dated: 01/10/2023 mammogram, 07/08/2021 mammogram, and 07/19/2019 mammogram - [facility]. There are scattered areas of fibroglandular density (category b / 25%-50% glandular tissue). Current study was also evaluated with a Computer Aided Detection (CAD) system. There are benign calcifications in the left breast. No significant masses, calcifications, or other findings are seen in either breast. There has been no significant interval change. IMPRESSION: BENIGN There is no mammographic evidence of malignancy. A 1 year screening mammogram is recommended. Based on the Tyrer Cuzick model (a risk assessment model) the patient's lifetime risk is 7.9% and her 10 year risk is 3.4%. According to the ACR, ACS, and NCCN guidelines, an annual breast MRI exam along with mammogram is recommended if the patient's lifetime risk is 20% or greater. This exam was interpreted at Station ID: [id number]. NOTE: For mammograms, a report in lay terms will be sent to the patient. Approximately 15% of breast malignancies will not be visualized mammographically. In the management of a palpable breast mass, a negative mammogram must not discourage biopsy of a clinically suspicious lesion. Electronically Signed By: Pinky arana/jeovany:04/18/2024 16:29:12 letter sent: Normal Exam ACR BI-RADS Category 2: Benign
== END ==
PROVIDERS: PCP Physician Assistant Medical; Referring Provider Physician Assistant Medical; Visit Provider Physician Assistant Medical
DX: Z12.31 Encounter for screening mammogram for malignant neoplasm of breast (principal)
CPT/HCPCS: 77063; 77067

== ENCOUNTER → 2025-05-02 17:06 | Outpatient (CLI) | payer BC, SELFPAY ==
--- NOTE | 2025-05-02 17:08 | DI.MG.S_ITS ---
MM screening mammo BI: 05/02/2025. BI-RADS: 1 CLINICAL: 65-year old female for bilateral screening mammogram. Tyrer-Cuzick lifetime risk of 9.8%. No personal or first-degree family history of breast cancer. The patient had a prior left breast biopsy. PRIOR EXAMS 04/17/2024, 01/10/2023, 07/08/2021, 07/19/2019. MAMMOGRAPHY TECHNIQUE: 2D and 3D (tomosynthesis) digital mammographic views obtained, with additional images as needed for full coverage. Current study was also evaluated with a Computer Aided Detection (CAD) system. DENSITY B. There are scattered areas of fibroglandular density. MAMMOGRAPHY FINDINGS Bilateral: No suspicious mass, asymmetry, microcalcification, or other abnormality seen. IMPRESSION: * No evidence of malignancy. RECOMMENDATIONS Bilateral * Annual screening mammography. OVERALL ASSESSMENT CATEGORY BI-RADS-1: Negative. [employer] recommends annual screening mammography beginning at age 40 for women with average risk of breast cancer. ELECTRONICALLY SIGNED: Ran Kimbrough M.D. on 05/04/2025 at 05:18:16 PM PT Interpreting Station ID: [id number]
== END ==
LOC: MAMMO 17:07
PROVIDERS: PCP Physician Assistant Medical; Referring Provider Physician Assistant Medical; Visit Provider Physician Assistant Medical
DX: Z12.31 Encounter for screening mammogram for malignant neoplasm of breast (principal)
CPT/HCPCS: 77063; 77067